=== PATIENT | female | born 2000 | race African-American/Black ===

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

== ENCOUNTER 2022-11-26 14:06 | Emergency (ER) | payer MEDICAID ==
[~2022-11-26] VITALS: Ht 165.1 cm; Wt 109.0 kg
[2022-11-26 14:16] VITALS: BP 128/79
[2022-11-26] MEDS ORDERED: ALBUTEROL (0.5%) 2.5MG/0.5ML NEB HHN ONE (15:45)
== END 2022-11-26 16:45 | disposition home or self-care (01) ==
LOC: ER 14:06
DX: R05.9 Cough, unspecified (principal); R06.02 Shortness of breath; J45.909 Unspecified asthma, uncomplicated
CPT/HCPCS: 71045; 81025; 94640; 99283; Z7610

== ENCOUNTER 2023-07-01 13:57 | Emergency (ER) | payer MEDICAID ==
[~2023-07-01] VITALS: Ht 170.2 cm; Wt 100.0 kg
[~2023-07-01 13:57] MED LIST changes: +ALBU5SOL18 IH; -PROSOL IH
[2023-07-01 14:18] VITALS: BP 114/68; PULSE 79; RESP 16; TEMP 98.4; O2SAT 100
== END 2023-07-01 18:05 | disposition left against medical advice (07) ==
LOC: ER 14:51
DX: H92.01 Otalgia, right ear (principal); Z53.21 Procedure and treatment not carried out due to patient leaving prior to being seen by health care provider
CPT/HCPCS: 99281